=== PATIENT | male | born 1980 | race Caucasian/White ===

== ENCOUNTER 2019-04-23 15:46 | Emergency (ER) ==
[2019-04-23 15:52] VITALS: BP 170/114; TEMP 97.6; BMI 24.3
--- NOTE | 2019-04-23 17:43 | ED.PDOC ---
General ED Provider: Dr. AURORA BARROW Chief Complaint: Tooth Problem Stated Complaint: tothache Time Seen by Physician: 17:56 Mode of Arrival: Walk-In Information Source: Patient Exam Limitations: No limitations Nursing and Triage Documentation Reviewed and Agree: Yes Does patient meet sepsis criteria?: No System Inflammatory Response Syndrome: Not Applicable Sepsis Protocol: For patient's 13 years and over: Temp is 96.8 and below OR 101 and greater Pulse >90 BPM Resp >20/minute Acutely Altered Mental Status Are patient's symptoms suggestive of a new infection, such as: -Pneumonia -Skin, Soft Tissue -Endocarditis -UTI -Bone, Joint Infection -Implantable Device -Acute Abdominal Infection -Wound Infection -Meningitis -Blood Stream Catheter Infection -Unknown EENT Complaint Exam - Dental/Oral Complaint/Exam Onset/Duration: 2 days Symptoms Are: Still present Timing: Intermittent Initial Severity: Mild Current Severity: Mild Character: Reports: Aching Alleviating: Reports: None Associated Signs and Symptoms: Reports: Swelling, Foul odor Dental/Oral Surgical History: Reports: None Tooth Findings: Present: Gross decay Cervical Lymphadenopathy Present: No Facial Swelling Present: No Bleeding Present: No Septal Hematoma: No Foreign Body Present: No Dysphagia Present: No Drooling Present: No Asymmetrical Tonsillar Swelling Present: No Uvula Midline: Yes Ryann-tonsillar Fluctuence: No Trismus Present: No Palatal Petechiae Present: No Scarlatinaform Rash Present: No Lesions: Present: Gums Differential Diagnoses: Dental Abcess, Dental Caries Review of Systems - Review Of Systems Constitutional: Reports: No symptoms Eyes: Reports: No symptoms Ears, Nose, Mouth, Throat: Reports: No symptoms Respiratory: Reports: No symptoms Cardiac: Reports: No symptoms GI: Reports: No symptoms : Reports: No symptoms Musculoskeletal: Reports: No symptoms Skin: Reports: No symptoms Neurological: Reports: No symptoms Endocrine: Reports: No symptoms Hematologic/Lymphatic: Reports: No symptoms All Other Systems: Reviewed and Negative Past Medical History - Past Medical History Previously Healthy: Yes Endocrine: Reports: Unknown Cardiovascular: Reports: None, Unknown Respiratory: Reports: COPD, Other Hematological: Reports: None Gastrointestinal: Reports: None Genitourinary: Reports: UTI Neuro/Psych: Reports: None Musculoskeletal: Reports: None Cancer: Reports: None - Surgical History General Surgical History: Reports: None - Family History Family History: Reports: Diabetes - Social History Smoking Status: Current every day smoker, Heavy tobacco smoker Hx Substance Use: No Alcohol Screening: None Physical Exam - Physical Exam Appearance: Well-appearing Ill-appearing: None Pain Distress: None Eyes: CHRISSY ENT: Ears normal, Nose normal Respiratory: Airway patent Cardiovascular: RRR, Pulses normal GI/: Soft, Nontender Musculoskeletal: Normal strength, Limited strength Neurological: Sensation intact Critical Care Note - Critical Care Note Total Time (mins): 0 Course - Course Vital Signs: Temp Pulse Resp BP Pulse Ox 04/23/19 15:47 97.6 F 82 18 170/114 H 95 Departure - Departure Time of Disposition: 17:52 Disposition: HOME SELF-CARE Discharge Problem: Toothache Instructions: Dry Mouth (ED) Condition: Good Pt referred to PMD for follow-up: Yes IPMP verified?: No Additional Instructions: Cipro 500 mg bid x 3 dauys,Ultran 50 mg tid x 3d tab15, Allergies/Adverse Reactions: Allergies hydrocodone Adverse Reaction (Verified 04/23/19 15:52) Home Medications: Ambulatory Orders Levetiracetam [Keppra] 500 mg PO BID 04/23/19 Lisinopril [Zestril] 10 mg PO DAILY 04/23/19 Paroxetine HCl [Paxil] 20 mg PO DAILY 04/23/19 Disposition Discussed With: Patient, Family
[2019-04-23] MEDS ORDERED: AUGMENTIN 875-125 MG TAB PO STA (17:50)
== END 2019-04-23 18:16 | disposition home or self-care (01) ==
LOC: ED 15:46
DX: K08.89 Other specified disorders of teeth and supporting structures (principal); K02.7 Dental root caries; F17.210 Nicotine dependence, cigarettes, uncomplicated
CPT/HCPCS: 99282

== ENCOUNTER 2019-07-08 14:40 | Outpatient (CLI) | END 2019-07-08 14:41 | disposition home or self-care (01) | LOC: RHC-LAB 14:40 → FCC-LAB 14:41 | PROVIDERS: ATTEND Family Medicine | DX: Z00.00 Encounter for general adult medical examination without abnormal findings (principal); I10 Essential (primary) hypertension; F19.11 Other psychoactive substance abuse, in remission | CPT/HCPCS: 36415; 80053; 80061; 85025; 86803; 87389 ==